=== PATIENT | male | born 1965 | race Caucasian/White ===

== ENCOUNTER 2017-05-22 09:39 | Emergency (ER) | payer OTHER ==
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
[2017-05-22] MEDS ORDERED: Ibuprofen 200 MG TAB ONE (11:18)
== END 2017-05-22 11:23 | disposition home or self-care (01) ==
LOC: NAV ERS 09:39
DX: S50.02XA Contusion of left elbow, initial encounter (principal); B20 Human immunodeficiency virus [HIV] disease; I10 Essential (primary) hypertension; Z79.899 Other long term (current) drug therapy; W11.XXXA Fall on and from ladder, initial encounter